=== PATIENT | male | born 1970 | race Caucasian/White ===

== ENCOUNTER 2017-02-06 22:00 | Emergency (ER) | payer SELFPAY ==
[~2017-02-06] VITALS: Ht 175.3 cm; Wt 97.0 kg
[~2017-02-06 22:00] MED LIST: LISI-461 PO; MTR/600 PO; TRAM-10 PO
[2017-02-06 22:06] VITALS: TEMP 36.8; Ht 175.3 cm; Wt 97.0 kg
[2017-02-06 22:14] VITALS: O2SAT 97
[2017-02-06 22:44] LABS: BASO % 0.3 %; BASO ABS # 0.03 K/uL (0-0.2); COMPLETE YES; EOS % 2.6 %; HEMATOCRIT 46.3 % (42-52); IG% 0.2 %; LYMPH % 31.8 %; LYMPH ABS # 2.79 K/uL (1.2-3.4); MEAN CELL VOLUME 84.8 fL (80-100); MEAN CORPUSCULAR HEMOGLOBIN 29.5 pg (25-34); MEAN CORPUSCULAR HGB CONC 34.8 g/dl (32-36); MEAN PLATELET VOLUME 11.2 fL (7.4-10.4); MONO % 5.5 %; NEUT % 59.6 %; PLATELET COUNT 177 K/uL (130-400); RED BLOOD COUNT 5.46 M/uL (4.7-6.1); WHITE BLOOD COUNT 8.78 K/uL (4.8-10.8)
[2017-02-06 22:59] LABS: POINT OF CARE TROPONIN I < 0.030 ng/ml (0-0.045)
[2017-02-06 23:02] LABS: ALT/SGPT 32 U/L (12-78); BLOOD UREA NITROGEN 21 mg/dl (7-18); BUN/CREATININE RATIO 18.6 (10-20); CALCIUM 8.9 mg/dl (8.5-10.1); CARBON DIOXIDE 26 mmol/L (21-32); CHLORIDE 108 mmol/L (98-107); GLUCOSE 87 mg/dl (70-99); POTASSIUM 3.8 mmol/L (3.5-5.1); SODIUM 141 mmol/L (136-145)
[2017-02-06 23:07] LABS: ALKALINE PHOSPHATASE 55 U/L (45-117); AST/SGOT 20 U/L (15-37)
[2017-02-06] MEDS ORDERED: OPTIRAY 320 IV PRN (23:45)
[2017-02-07 02:55] VITALS: BP 137/106; PULSE 78; O2SAT 96
--- NOTE | 2017-02-07 06:26 | EMERGENCY ROOM VISIT NOTE ---
History First contact with patient: 22:18 Chief Complaint: ABDOMINAL PAIN Stated Complaint: MID SECTION PAIN,BACK,LEG PAIN Nursing Triage Summary: Sharp abdominal pain for 3 days. Black stool yesterday, loose but not black stools today. Pain is sharp and intermittent, usually exacerbated by eating. Pain is left side of abdomen with radiation to flanks. Also some tingling in posterior left leg. No nausea or vomiting. Intermittent dizziness. History of Present Illness The patient is a 46 year old male who presents to the Emergency Room with complaints of chest pain that radiates down his left arm for the past 3 days described as aching, ranging in severity 5 out of 10. Nothing makes it better or worse. Patient does smoke and has high blood pressure. There is a family history of heart disease. No stress test or echo in the past. Patient denies dyspnea, fever, chills, numbness, tingling, diaphoresis, headache, neck pain, injury to the area, vomiting, diarrhea, loss of bowel or bladder control, saddle anesthesia. She has a history of back pain and symptoms feel similar for his back complaint. No IV drug abuse. Review of Systems See HPI for pertinent positives & negatives. A total of 10 systems reviewed and were otherwise negative. Past Medical/Surgical History Low back pain, knee surgery, hypertension Social History Smoking Status: Current Every Day Smoker Alcohol Use: none Drug Use: none Marital Status: Housing Status: lives with family Occupation Status: employed Current/Historical Medications Scheduled Lisinopril (Lisinopril), 10 MG PO DAILY Allergies Coded Allergies: No Known Allergies (Unverified , 02/06/17) Physical Exam Vital Signs Date Time Temp Pulse Resp B/P (MAP) Pulse Ox O2 Delivery O2 Flow Rate FiO2 02/07/17 02:55 78 16 137/106 96 02/07/17 02:15 69 02/07/17 01:00 71 22 143/91 96 Room Air 02/06/17 23:31 154/102 02/06/17 23:30 73 12 97 02/06/17 23:15 70 18 95 02/06/17 23:03 143/87 02/06/17 23:00 74 17 96 02/06/17 22:45 80 18 96 02/06/17 22:30 75 20 97 02/06/17 22:21 77 02/06/17 22:15 76 26 95 02/06/17 22:14 97 Room Air 02/06/17 22:14 97 Room Air 02/06/17 22:13 158/99 02/06/17 22:06 36.8 88 16 149/102 97 Room Air Pain Rating (0-10): 0 Physical Exam VITALS: Vitals are noted on the nurse's note and reviewed by myself. Vital signs stable. GENERAL: Pleasant male, in no acute distress, nondiaphoretic, well-developed well-nourished. SKIN: The skin was without rashes, erythema, edema, or bruising. There is no tenting of the skin. Capillary reflex less than 2 seconds. HEAD: Normocephalic atraumatic. EARS: External auditory canals clear, tympanic membranes pearly sharpe without erythema or effusion bilaterally. EYES: Pupils equal round and reactive to light and accommodation. Conjunctivae without injection, sclerae without icterus. Extraocular movements intact. NOSE: Patent, turbinates without inflammation or discharge. MOUTH: Mucous membranes moist. Pharynx without erythema or exudate. Uvula midline. Airway patent. Tongue does not deviate. NECK: Supple without nuchal rigidity. No lymphadenopathy. No thyromegaly. Cervical spine is nontender. No JVD. HEART: Regular rate and rhythm without murmurs gallops or rubs. Chest nontender to palpation LUNGS: Clear to auscultation bilaterally without wheezes, rales or rhonchi. No dullness to percussion. No retractions or accessory muscle use. ABDOMEN: Positive bowel sounds x 4. Normal tympanic percussion. Soft, nontender, without masses or organomegaly. Isaacs sign negative. No guarding or rebound tenderness. MUSCULOSKELETAL: No muscle atrophy, erythema, or edema noted. No thoracic or lumbar tenderness on exam. Patient can ambulate without difficulties. 5 out of 5 strength throughout. NEURO: Patient was alert and oriented to person place and time. Normal sensation to light and sharp touch. No focal neurological deficits. Medical Decision & Procedures Laboratory Results 02/06/17 22:20 Red Blood Count 5.46, Mean Corpuscular Volume 84.8, Mean Corpuscular Hemoglobin 29.5, Mean Corpuscular Hemoglobin Concent 34.8, Mean Platelet Volume 11.2, Neutrophils (%) (Auto) 59.6, Lymphocytes (%) (Auto) 31.8, Monocytes (%) (Auto) 5.5, Eosinophils (%) (Auto) 2.6, Basophils (%) (Auto) 0.3, Neutrophils # (Auto) 5.23, Lymphocytes # (Auto) 2.79, Monocytes # (Auto) 0.48, Eosinophils # (Auto) 0.23, Basophils # (Auto) 0.03 02/06/17 22:20 Test 02/06/17 22:20 02/06/17 22:39 02/07/17 02:06 White Blood Count 8.78 K/uL (4.8-10.8) Red Blood Count 5.46 M/uL (4.7-6.1) Hemoglobin 16.1 g/dL (14.0-18.0) Hematocrit 46.3 % (42-52) Mean Corpuscular Volume 84.8 fL (80-100) Mean Corpuscular Hemoglobin 29.5 pg (25-34) Mean Corpuscular Hemoglobin Concent 34.8 g/dl (32-36) Platelet Count 177 K/uL (130-400) Mean Platelet Volume 11.2 fL (7.4-10.4) Neutrophils (%) (Auto) 59.6 % Lymphocytes (%) (Auto) 31.8 % Monocytes (%) (Auto) 5.5 % Eosinophils (%) (Auto) 2.6 % Basophils (%) (Auto) 0.3 % Neutrophils # (Auto) 5.23 K/uL (1.4-6.5) Lymphocytes # (Auto) 2.79 K/uL (1.2-3.4) Monocytes # (Auto) 0.48 K/uL (0.11-0.59) Eosinophils # (Auto) 0.23 K/uL (0-0.5) Basophils # (Auto) 0.03 K/uL (0-0.2) RDW Standard Deviation 39.4 fL (36.4-46.3) RDW Coefficient of Variation 12.7 % (11.5-14.5) Immature Granulocyte % (Auto) 0.2 % Immature Granulocyte # (Auto) 0.02 K/uL (0.00-0.02) Anion Gap 7.0 mmol/L (3-11) Est Creatinine Clear Calc Drug Dose 98.5 ml/min Estimated GFR () 94.1 Estimated GFR (Non- 81.2 BUN/Creatinine Ratio 18.6 (10-20) Calcium Level 8.9 mg/dl (8.5-10.1) Total Bilirubin 0.3 mg/dl (0.2-1) Direct Bilirubin < 0.1 mg/dl (0-0.2) Aspartate Amino Transf (AST/SGOT) 20 U/L (15-37) Alanine Aminotransferase (ALT/SGPT) 32 U/L (12-78) Alkaline Phosphatase 55 U/L (45-117) Troponin I < 0.015 ng/ml (0-0.045) Total Protein 7.1 gm/dl (6.4-8.2) Albumin 3.8 gm/dl (3.4-5.0) Lipase 174 U/L (73-393) Bedside D-Dimer 97 ng/mlFEU (0-450) Bedside Troponin I < 0.030 ng/ml (0-0.045) ED Course Prior records/ancillary studies reviewed. Triage Nursing notes reviewed. The patient's history was concerning for chest pain. Differential diagnosis: Etiologies such as cardiac ischemia, aortic dissection, pulmonary embolism, pneumonia, pneumothorax, musculoskeletal, infections, pericarditis, myocarditis , esophageal rupture, gastrointestinal, as well as others were entertained. Physical examination: As above. ER treatment provided: Patient declined pain medicine On reassessment the patient felt better. Diagnostic interpretation by me: The electrocardiogram was negative for pathologic change. Normal sinus, normal intervals, T wave inversion in lead 3, rate of 68, normal axis. Impression normal sinus rhythm interpreted by myself The labs revealed negative troponin 2 that is 2 hours apart Imaging studies: Chest x-ray as above CTA CHEST: No evidence of PE. Calcified granuloma within the superior segment of the left lower lobe with calcified left hilar lymph nodes and also a splenic calcification, compatible with old granulomatous disease. 8mm nodule along the anterior aspect of the trachea (image 207, series 4), suspicious for endobronchial lesion Consider nonemergent correlation with bronchoscopy or short interval followup (adherent mucus considered less likely). No acute parenchymal lung disease. No pleural effusions. No pathologic adenopathy. Heart size is normal. Aorta is unremarkable. Age indeterminant mild height loss of T3 vertebral body superiorly, with associated Schmorl's node. No CT findings to suggest acute fracture. Correlation with MRI could be considered if this corresponds to patient's back pain. Mild multilevel degenerative changes of thoracic spine. Radiologist: Natan Kwong MD Exam and history seem consistent with chest pain that is less likely cardiac in etiology. Patient has a lung nodule and is advised to see the district recruiter for biopsy. Case management will help facilitate this. Patient was advised to see his family care doctor tomorrow for referral and Case management states they will help expedite this. Patient does smoke. He is strongly encouraged to quit. Patient was neurovascularly neurologic intact. He is well-appearing. Negative troponin 2 was 2 hours apart and a normal EKG. He was advised to return to the ER immediately for chest pain, difficulty breathing, worsening signs or symptoms or as needed. By the evaluation outlined above emergent etiologies such as cardiac ischemia, aortic dissection, pulmonary embolism, pneumonia, pneumothorax, infections, pericarditis, myocarditis, gastrointestinal, as well as others were deemed relatively unlikely. The pt informed about the findings as listed above. All questions were answered and pleased with the treatment. Return instructions were outlined and the patient was discharged in stable condition. Referral: The patient was referred back to primary care physician and pulmonology for biopsy for follow-up in 2 to 3 days for a recheck of the current condition. Case reviewed with my attending Medical Decision As above Impression Primary Impression: Precordial chest pain Additional Impression: Lung nodule Departure Information Dispostion Home / Self-Care Condition GOOD Forms Call Back Authorization, HOME CARE DOCUMENTATION FORM, Work Instructions, Return To Work: 2 days IMPORTANT VISIT INFORMATION Patient Instructions Chest Pain - [facility], On License Of [facility], ED Nodule Solitary Pulmonary Additional Instructions You have a lesion on your trachea that needs further workup such as biopsy. You need to be seen by a district recruiter for this. Your family care doctor can make this arrangements or case management. Rest and drink plenty of fluids as tolerated. Continue current medications. Avoid strenuous activities and anything that worsens your pain. Resume normal activities once your symptoms resolve. Return to the ER immediately for worsening or persistent chest pain, abdominal pain, vomiting, fevers, chest pains, difficulty breathing, worsening of your condition, or as needed. Follow up with your primary physician tomorrow to make arrangements to be seen by pulmonology in 2-3 days for a recheck of your current condition. Work Instructions Return To Work: 2 days Problem Qualifiers
--- NOTE | 2017-02-07 06:40 | DIAGNOSTIC IMAGING REPORT ---
CHEST ONE VIEW PORTABLE CLINICAL HISTORY: Atypical chest pain. Abdominal pain. COMPARISON STUDY: 03/07/2014 FINDINGS: The heart is at the upper limits of normal in size. There is no failure. There is no focal pulmonary consolidation. There are no pleural effusions. There is no free intraperitoneal air.[ IMPRESSION: No active disease in the chest. Electronically signed by: Judson Ordonez M.D. 02/07/2017 6:39 AM Dictated Date/Time: 02/07/2017 6:39 AM
--- NOTE | 2017-02-07 07:08 | DIAGNOSTIC IMAGING REPORT ---
CT ANGIOGRAM OF THE CHEST CLINICAL HISTORY: Atypical chest pain COMPARISON STUDY: Chest x-ray dated 02/06/2017 TECHNIQUE: Following the IV administration of 119 mL of Optiray-320, CT angiogram of the thorax was performed from the thoracic inlet to the lung bases utilizing the pulmonary embolus protocol. Images are reviewed in the axial, sagittal, and coronal planes. IV contrast was administered without complication. MIP imaging was performed. CT DOSE: 580.33 mGy.cm FINDINGS: Paratracheal lymph nodes are the upper limits of normal in size. There is no pathologic axillary or hilar lymphadenopathy. There was no evidence of thoracic aortic dilatation. There were no pulmonary artery filling defects to indicate acute pulmonary embolism. No pleural effusions are visualized. There are mild dependent atelectatic changes. There is no focal pulmonary consolidation. There is a 3 mm solid subpleural left lower lobe pulmonary nodule as visualized in image #[id number]. There is a 2.5 mm solid subpleural nodule visualized within the right middle lobe as visualized in image #[id number]. In a low-risk individual, no further follow-up is indicated. There is an 8 mm nodule along the anterior aspect of the trachea. Bronchoscopic follow-up should be considered to differentiate a true lesion from adherent mucus. There is a mild superior endplate T3 deformity with associated Schmorl's node IMPRESSION: 1. No CT evidence of acute pulmonary embolism 2. Subcentimeter pulmonary nodules, the largest of which measures 3 mm. In a low risk patient, no follow-up is indicated 3. 8 mm nodule along the anterior aspect of the trachea. Bronchoscopic follow-up should be considered to differentiate a true lesion from adherent mucus Electronically signed by: Judson Ordonez M.D. 02/07/2017 7:06 AM Dictated Date/Time: 02/07/2017 7:00 AM
== END 2017-02-07 02:56 | disposition home or self-care (01) ==
LOC: C.EDB 22:01
DX: R07.2 Precordial pain (principal); R91.1 Solitary pulmonary nodule; F17.200 Nicotine dependence, unspecified, uncomplicated

== ENCOUNTER 2017-03-10 07:29 | Day surgery (SDC) | payer SELFPAY ==
[~2017-03-10] VITALS: Ht 175.3 cm; Wt 96.7 kg
[2017-03-10] VITALS (15 sets, daily range): BP systolic 118–149; BP diastolic 79–110; PULSE 60–86; TEMP 36.4–36.9; O2SAT 92–97; Ht 175.3 cm; Wt 96.7 kg
[~2017-03-10 07:29] MED LIST changes: -MTR/600 PO; -TRAM-10 PO
[2017-03-10] MEDS ORDERED: MIDAZOLAM HCL 5 MG/ML 1 ML VIAL IV ONE ×2 (07:30→11:30)
[2017-03-10] MEDS ORDERED: FENTANYL CITRATE 100 MCG 2 ML CARP IV ONE (07:30)
--- NOTE | 2017-03-10 09:02 | Procedure Note ---
Pre-Mod Sedation Assessment General Date of Moderate Sedation: Mar 10, 2017. Vital Signs: Vital Signs Past 12 Hours Date Time Temp Pulse Resp B/P (MAP) Pulse Ox O2 Delivery O2 Flow Rate FiO2 03/10/17 08:55 36.9 64 18 133/88 94 Room Air 03/10/17 08:23 36.9 64 18 133/88 (103) 94 Room Air Review Cardiovascular: regular rate, rhythm, no edema, no gallop, no JVD, no murmur, normal peripheral pulses Abdomen: normal bowel sounds, non tender, soft, no organomegaly, no pulsatile mass, normal rectal exam, occult blood negative Airway Class: I Pre-Sedation Airway Assessment Oral Cavity: WNL Short Thick Neck: No Hx of Sleep Apnea: No Smoking Status: Current Every Day Smoker ASA Classification: Class I Procedure Planning Contraindications-for Mod Sed: None Yes Notes The planned sedation has been discussed with the patient and consent obtained. I have identified the patient, determined the appropriateness of sedation and have assessed the patient immediately prior to the procedure. All medicine(s) and interventions are by my order.
--- NOTE | 2017-03-10 09:03 | History & Physical Bridge Note ---
H&P Re-Evaluation Bridge Note: I have examined the patient, reviewed the History & Physical and in the interval since the performance of the History & Physical I have noted the following changes of clinical significance: No changes noted
--- NOTE | 2017-03-10 09:48 | Discharge Instructions ---
Discharge Instructions Date of Service Mar 10, 2017. Admission Reason for Admission: Pulmonary Nodule Discharge Discharge Diagnosis / Problem: abnormal CAT scan, tracheal nodule Discharge Goals Goal(s): Diagnostic testing Activity Recommendations Activity Limitations: resume your previous activity . Instructions / Follow-Up Instructions / Follow-Up [facility] pulmonary Department Current Hospital Diet Patient's current hospital diet: Discharge Diet Recommended Diet: Regular Diet Procedures Procedures Performed: Bronchoscopy, conscious sedation, bronchial lavage of the lingula Pending Studies Studies pending at discharge: no Medical Emergencies . Who to Call and When: Medical Emergencies: If at any time you feel your situation is an emergency, please call 911 immediately. . Non-Emergent Contact Non-Emergency issues call your: Data Warehousing Manager . . "Provider Documentation" section prepared by Jef Turner. . VTE Core Measure Inpt VTE Proph given/why not?: Treatment not indicated
--- NOTE | 2017-03-10 09:49 | Procedure Note ---
Post-Moderate Sedation Plan General Date of Moderate Sedation Mar 10, 2017. Vital Signs: Vital Signs Past 12 Hours Date Time Temp Pulse Resp B/P (MAP) Pulse Ox O2 Delivery O2 Flow Rate FiO2 03/10/17 08:55 36.9 64 18 133/88 94 Room Air 03/10/17 08:23 36.9 64 18 133/88 (103) 94 Room Air Review - Discharge Plan Post Moderate Sedation Plan: On clinical assessment, the patient appears to have tolerated the conscious sedation without complications. Patient is recovering as anticipated. Patient will continue to be monitored by nursing and may be discharged when conscious sedation discharge criteria are met.
--- NOTE | 2017-03-10 09:51 | Bronchoscopy Procedure Note ---
Bronchoscopy Procedure Note Procedure: Bronchoscopy, conscious sedation, bronchial lavage of the lingula Consent: Obtained through the patient placed into the chart Pre-procedural diagnosis: Abnormal CAT scan/tracheal nodule Post-procedural diagnosis: Abnormal CAT scan but normal trachea and mainstem bronchi Start time: 919 End time: 940 Total time: minutes Analgesia: 2% liquid lidocaine: Via nebulizer 4% gel lidocaine: Via right naris 2% liquid lidocaine: Via bronchoscopy Sedation: Versed IV: 5mg Fentanyl IV: 100g Procedure: The Olympus video bronchoscope was used for this procedure and passed down through the right naris Right naris/posterior naris/posterior oropharynx: Anatomically within normal limits, mild cobblestoning in the posterior pharyngeal region suggesting GERD Glottis: Anatomically within normal limits, small glottic granuloma at the anterior vocal cord commissure Vocal cords: Proper abduction and abduction, anatomically within normal limits Subglottis/trachea/Mary: Anatomically within normal limits Right bronchial tree: Right mainstem bronchus: Anatomically within normal limits Right upper lobe: Anatomically within normal limits Bronchus intermedius: Anatomically within normal limits Right middle lobe: Anatomically within normal limits Right lower lobe: Anatomically within normal limits Findings: No significant findings noted Left bronchial tree: Left mainstem bronchus: Anatomically within normal limits Left upper lobe: Anatomically within normal limits Lingula: Anatomically within normal limits Left lower lobe: Anatomically within normal limits Findings: No significant findings noted Bronchial alveolar lavage: Lingula EBL: None Complications: None Follow-up: In the [facility]
[2017-03-10] MEDS ORDERED: D5W AND 1/2NSS 1,000 ML IV SCH (10:30)
[2017-03-10] MEDS ORDERED: NURSING VERBAL MED ORDER ONE ×2 (10:30→11:00)
[2017-03-10] MEDS ORDERED: FENTANYL CITRATE INJ 50 MCG/1 ML 2 ML VIAL IV ONE (11:30)
== END 2017-03-10 11:58 | disposition home or self-care (01) ==
LOC: C.ACU 07:29
PROVIDERS: ATTEND Internal Medicine Pulmonary Disease
DX: J98.8 Other specified respiratory disorders (principal); R91.8 Other nonspecific abnormal finding of lung field; I10 Essential (primary) hypertension

== ENCOUNTER 2017-06-27 10:00 | Emergency (ER) | payer SELFPAY ==
[~2017-06-27] VITALS: Ht 172.7 cm; Wt 97.0 kg
[2017-06-27 10:01] VITALS: TEMP 37; Ht 172.7 cm; Wt 97.0 kg
[2017-06-27] MEDS ORDERED: DOXYCYCLINE HYCLATE 100 MG CAP PO ONE (11:00)
[2017-06-27 11:05] VITALS: BP 142/103; PULSE 76; O2SAT 98
--- NOTE | 2017-06-27 18:21 | EMERGENCY ROOM VISIT NOTE ---
History Report prepared by Gustavo: Nic Ramos Under the Supervision of: Dr. Cam Huffman M.D. First contact with patient: 10:42 Chief Complaint: BITE Stated Complaint: TICK IN NECK History of Present Illness The patient is a 46 year old male who presents to the Emergency Room with complaints of a tick bite to the back of his neck that he believes began a couple of days ago. However, he just noticed the tick this morning. His tried to expel the tick using madeleine dish soap and was able to remove a part of it. 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 He denies any known allergies. He denies any known medical problems and does not take any medications. Pt denies LOC, headache, fevers, chills, diaphoresis, visual changes, neck pain, chest pain, breathing difficulties, nausea, vomiting, abdominal pain, numbness, weakness, lymphadenopathy, rash, or other complaints. Source of History: patient Onset: a couple of days ago Position: neck (posterior) Symptom Intensity: 1 tick Quality: other (Tick bite) Timing: constant Review of Systems See HPI for pertinent positives and negatives. A total of six systems were reviewed and were otherwise negative. Family History Patient reports no known family medical history. Social History Smoking Status: Current Every Day Smoker Alcohol Use: none Drug Use: none Marital Status: Housing Status: lives with family Occupation Status: employed Current/Historical Medications No Active Prescriptions or Reported Meds Allergies Coded Allergies: No Known Allergies (Unverified , 06/27/17) Physical Exam Vital Signs Date Time Temp Pulse Resp B/P (MAP) Pulse Ox O2 Delivery O2 Flow Rate FiO2 06/27/17 11:05 76 16 142/103 98 Room Air 06/27/17 10:01 37.0 82 16 137/107 97 Room Air Physical Exam GENERAL: Awake, alert, well-appearing, in no distress HENT: Normocephalic, atraumatic. Oropharynx unremarkable. EYES: Normal conjunctiva. Sclera non-icteric. NECK: Back of left neck has an embedded tick mouth part. Minimal swelling to the area. No signs of infection. Supple. No nuchal rigidity. FROM. No JVD. RESPIRATORY: Clear to auscultation. CARDIAC: Regular rate, normal rhythm. Extremities warm and well perfused. Pulses equal. MUSCULOSKELETAL: Chest examination reveals no tenderness. The back is symmetrical on inspection without obvious abnormality. No joint edema. NEURO: Normal sensorium. No sensory or motor deficits noted. SKIN: No rash or jaundice noted. Medical Decision & Procedures Medications Administered Medications (Trade) Dose Ordered Sig/Daniel Route Start Time Stop Time Status Last Admin Dose Admin Doxycycline Hyclate (Vibramycin Cap) 200 mg ONE ONCE PO 06/27/17 11:00 06/27/17 11:01 DC 06/27/17 11:04 200 MG Procedure Indication: Tick bite The area was prepped with alcohol wipe. An 18 gauge needle was utilized to remove the tick mouth parts. The parts were removed successfully. The patient tolerated the procedure well. No signs of abscess or cellulitis. No remaining on body. be ED Course 1042: The patient was evaluated in room A12B. A complete history and physical exam was performed. 1050: I performed a tick removal procedure at this time. Please see the procedure note for more information. 1100: Ordered Vibramycin Cap 200 mg PO 1105: I reevaluated the patient. Discussed results and discharge instructions: He verbalized understanding and agreement. The patient is ready for discharge. Medical Decision The patient presents to emergency department complaining of an embedded tick mouth parts in his left posterior neck. Differential would include cutaneous foreign body, exposure to Lyme disease, infection, as well as others. Physical examination revealed an embedded tick mouth parts. There is no clear evidence of infection. By the appearance of the wound it was obvious that this was on the patient for quite some time. I did offer prophylaxis for Lyme exposure and the patient agreed. He was given 200 mg of doxycycline. Return if structures were outlined. The patient was discharged in stable condition. Medication Reconcilliation Current Medication List: was personally reviewed by me Blood Pressure Screening Patient's blood pressure: Elevated blood pressure Blood pressure disposition: Elevated BP felt to be situational Impression Primary Impression: Tick bite Scribe Attestation The scribe's documentation has been prepared under my direction and personally reviewed by me in its entirety. I confirm that the note above accurately reflects all work, treatment, procedures, and medical decision making performed by me. Departure Information Dispostion Home / Self-Care Prescriptions No Active Prescriptions or Reported Meds Referrals No Doctor, Assigned (PCP) Forms HOME CARE DOCUMENTATION FORM, IMPORTANT VISIT INFORMATION Patient Instructions My [facility] Additional Instructions Return to the ER immediately for spreading redness, fevers, pus-like drainage, severe pain, or as needed. Follow-up with your family doctor as needed. Problem Qualifiers Primary Impression: Tick bite Encounter type: initial encounter Qualified Codes: W57.XXXA - Bitten or stung by nonvenomous insect and other nonvenomous arthropods, initial encounter
== END 2017-06-27 11:54 | disposition home or self-care (01) ==
LOC: C.EDB 10:01 → C.EDA 11:54
DX: S10.86XA Insect bite of other specified part of neck, initial encounter (principal); W57.XXXA Bitten or stung by nonvenomous insect and other nonvenomous arthropods, initial encounter; F17.210 Nicotine dependence, cigarettes, uncomplicated